=== PATIENT | female | born 2000 | race Caucasian/White ===

== ENCOUNTER 2019-11-19 16:25 | Inpatient (IN) ==
[2019-11-19] MEDS: RINGER'S SOLUTION,LACTATED 1,000 ML IV PRN ×2 (16:40→20:06)
[2019-11-19] MEDS ORDERED: ONDANSETRON 4 MG TAB.RAPDIS PO PRN (19:26)
[2019-11-19] MEDS ORDERED: PENICILLIN G POTASSIUM 5 MILLIONUNT in DEXTROSE 5 % IN WATER 100 ML IV ONE ×2 (19:26)
[2019-11-19] MEDS ORDERED: BUTORPHANOL TARTRATE 2 MG/ML VIAL IV PRN ×2 (19:26)
[2019-11-19] MEDS ORDERED: OXYTOCIN/DEXTROSE 5%-WATER 30 UNITS/500 ML BAG IV ONE (19:26)
[2019-11-19] MEDS ORDERED: LIDOCAINE HCL 50 ML VIAL PERI PRN (19:26)
[2019-11-19] MEDS ORDERED: RINGER'S SOLUTION,LACTATED 1,000 ML IV ONE (19:26)
[2019-11-19] MEDS: VANCOMYCIN/WATER FOR INJ (PEG) 2 GM/400 ML BAG IV SCH (21:23)
[2019-11-19] MEDS ORDERED: PENICILLIN G POTASSIUM 2.5 MILLIONUNT in DEXTROSE 5 % IN WATER 100 ML IV SCH ×2 (23:30)
[2019-11-20] MEDS: VANCOMYCIN/WATER FOR INJ (PEG) 2 GM/400 ML BAG IV SCH ×2 (05:12→12:43)
--- NOTE | 2019-11-20 09:01 | HP ---
Chief Complaint - Chief Complaint Date of Service: 11/20/19 Time of Service: 08:48 Chief Complaint: Labor History of Present Illness: 19 year old at 38w 5d who presented to labor and delivery in labor. She reports regular ctx. She denies vb or lof. Fetus is active. Medical History (Last Reviewed 11/20/19 @ 08:50 by Lianne Urrutia MD) Cellulitis and abscess of leg (Acute) Surgical History: Surgical History (Last Reviewed 11/20/19 @ 08:50 by Lianne Urrutia MD) History of bladder surgery urethra replantaion Family History: Family History (Last Reviewed 11/20/19 @ 08:50 by Lianne Urrutia MD) Father Diabetes Type II Mother Hypertension Grandmother Cancer leukemia Social History: (Last Reviewed 11/20/19 @ 08:50 by Lianne Urrutia MD) Social History: Marital status: Single lives independently: Yes household members: significant other current occupational status: employed current occupational exposures/hazards: No Highest education level completed: some college, no degree Service: No Tobacco: Smoking Status: Never smoker Alcohol: alcohol intake: never Substance Use: substance use type: does not use Dietary Habits: caffeine: No Review Of Systems (GEN) - Review of Systems Generalized/Overall Review: Present: No Symptoms Reported EENTM: Present: No Symptoms Reported Respiratory: Present: No Symptoms Reported Cardiac: Present: No Symptoms Reported Abdominal: Present: No Symptoms Reported Genitourinary: Present: Other - contractions Musculoskeletal: Present: No Symptoms Reported Neurological: Present: No Symptoms Reported Skin: Present: No Symptoms Reported Endocrine: Present: No Symptoms Reported Immunizations: IMMUNIZATION HX Immunizations Up to Date Yes Allergies/Adverse Reactions: Allergies Allergy/AdvReac Type Severity Reaction Status Date / Time penicillin G Allergy Itching Verified 11/19/19 20:47 Home Medications: HOME MEDICATIONS fluoxetine 20 mg capsule 20 mg PO DAILY #30 cap 05/25/19 [Last Taken 11/19/19 09:00] ferrous sulfate 325 mg (65 mg iron) tablet 325 mg PO DAILY 10/20/19 [Last Taken 11/19/19 09:00] Acetaminophen [Tylenol] 1,000 tab PO Q8H PRN 11/18/19 [Last Taken 11/17/19] Vits96/Iron Fum/Folic [ S] 1 tab PO DAILY 11/18/19 [Last Taken 11/19/19 09:00] Exam - Exam Vital Signs: Vital Signs - Last Taken Temp 36.5 C 11/20/19 00:30 Pulse 77 11/20/19 00:30 Resp 20 11/20/19 00:30 BP 118/64 11/20/19 00:30 Pulse Ox 100 11/20/19 00:30 Constitutional: Present: Alert, Oriented x3, Cooperative, No distress ENT Exam: Present: hearing grossly normal Eye Exam: bilateral eye: normal inspection Neck: Present: supple Back Exam: Present: normal inspection Breasts: Present: Exam deferred Respiratory: Present: lungs clear, normal breath sounds, no respiratory distress Cardiovascular/Chest: Present: regular rate, rhythm Abdomen: Present: soft, nontender, nondistended /Rectal: Present: Other - 4-5/70/-2 Extremity: Present: non-tender, no calf tenderness Skin Exam: Present: normal color, warm/dry, no cyanosis Neurologic: Present: alert, normal mood/affect, oriented x 3 Appearance: Present: appropriate appearance Eye contact: Present: cooperative, good eye contact, normal speech Thoughts: Present: normal thought pattern Diagnostic Studies: Laboratory Results Creatinine 0.60 mg/dL (0.4-1.4) 11/19/19 19:43 Blood Type O Positive 11/19/19 19:43 Antibody Screen Negative 11/19/19 19:43 Assessment/Plan - Narrative Narrative: 19 year old at 38w 5d Patient admitted for labor. She made cervical change from 1 cm to 3-4 cm. She is currently 4-5 cm. AROM done for augmentation of labor. Pitocin started for augmentation of labor as well GBS positive: the patient was started on PCN for GBS prophylaxis and she developed an allergic reaction to PCN. Started on vancomycin for GBS prophylaxis since the patient had sensitivities done with her GBS and was only sensitive to PCN. Baseline creatitine ordered due to starting vancomycin. - Assessment/Plan (1) Rh(D) positive Problem: Acute (2) Positive GBS test Problem: Acute (3) 38 weeks gestation of Problem: Acute (4) Recurrent UTI Problem: Acute (5) History of maternal Chlamydia infection, currently in third trimester Problem: Acute
[2019-11-20] MEDS: RINGER'S SOLUTION,LACTATED 1,000 ML IV PRN ×2 (09:34→10:40)
[2019-11-20] MEDS ORDERED: NALOXONE HCL 1 MG/1 ML SYRG IV PRN (09:38)
[2019-11-20] MEDS ORDERED: BUPIVACAINE HCL/0.9 % NACL/PF 250 ML EP PRN (09:38)
[2019-11-20] MEDS ORDERED: ONDANSETRON HCL/PF 2 MG/ML VIAL IV PRN (09:38)
[2019-11-20] MEDS ORDERED: fentaNYL CITRATE/PF 50 MCG/ML AMPUL IT SCH (09:45)
--- NOTE | 2019-11-20 10:41 | ANES ---
Post Anesthesia Discharge - Transfer of Care Transfer of Care handoff given to nurse: Yes - Anesthesia Post Op Note Anesthesia Post Op Note: Care transferred to OB RN
--- NOTE | 2019-11-20 10:41 | ANES ---
Anesthesia Pre Procedure Eval Vitals/Labs: Last Vital Signs Temp 36.5 C 11/20/19 00:30 Pulse 77 11/20/19 00:30 Resp 20 11/20/19 00:30 BP 118/64 11/20/19 00:30 Pulse Ox 100 11/20/19 00:30 HOME MEDICATIONS fluoxetine 20 mg capsule 20 mg PO DAILY #30 cap 05/25/19 [Last Taken 11/19/19 09:00] ferrous sulfate 325 mg (65 mg iron) tablet 325 mg PO DAILY 10/20/19 [Last Taken 11/19/19 09:00] Acetaminophen [Tylenol] 1,000 tab PO Q8H PRN 11/18/19 [Last Taken 11/17/19] Vits96/Iron Fum/Folic [ S] 1 tab PO DAILY 11/18/19 [Last Taken 11/19/19 09:00] Allergies/Adverse Reactions: Allergies Allergy/AdvReac Type Severity Reaction Status Date / Time penicillin G Allergy Itching Verified 11/19/19 20:47 - Planned Procedure Planned Procedure: LABOR Medication List Reviewed:: Yes Allergies Verified: Yes Medical History (Last Reviewed 11/20/19 @ 10:40 by Deion Alcala CRNA) Cellulitis and abscess of leg (Acute) Surgical History (Last Reviewed 11/20/19 @ 10:40 by Deion Alcala CRNA) History of bladder surgery urethra replantaion Family History (Last Reviewed 11/20/19 @ 10:40 by Deion Alcala CRNA) Father Diabetes Type II Mother Hypertension Grandmother Cancer leukemia - Family Anesthesia History Family History:: no untoward family reactions to anesthesia - Airway/Neck/Teeth Within Normal Limits:: Yes Teeth Condition: intact Neck Exam: full range of motion Mallampatti Score: 2 Thyromental (T-M) distance: > 6 cm Mandibulo Hyoid distance: > 3 cm - Respiratory Respiratory Physical: lungs clear Smoking Status: Never smoker Sleep Apnea currently treated: No Sleep Apnea by current assessment: No - Cardiovascular Tolerate Activity: Good Heart Sounds: S1 & S2, Regular - Gastrointestinal NPO since: MN - Anesthesia Assessment and Plan ASA Class: PS, II, E Anesthesia Type Plan: Epidural Planned difficult intubation/equipment available: No
--- NOTE | 2019-11-20 10:42 | ANES ---
Post Anesthesia Assessment - Vital Signs Vitals: Last Vital Signs Temp 36.5 C 11/20/19 00:30 Pulse 77 11/20/19 00:30 Resp 20 11/20/19 00:30 BP 118/64 11/20/19 00:30 Pulse Ox 100 11/20/19 00:30 Airway Patency: Normal - Mental Status Level Of Consciousness: Awake - Pain Level Pain Score: 2 - N/V Assessment Nausea/Vomiting Presence: None Dehydration:: No
--- NOTE | 2019-11-20 10:44 | ANES ---
Anesthesia Procedure Note Procedure Note: ANESTHESIA PROCEDURE NOTE Date of Procedure: 11/20/2019 Time of procedure: 1025. Performed by: Saulo Alcala CRNA Bar Manager: None. Preprocedure diagnosis: Active labor. Post procedure diagnosis: Same. Procedure: Insertion of labor epidural. Indications: The patient is a 19-year-old prima para female in active labor requesting labor epidural for pain management. Findings: See below. Details of the procedure: The patient was placed in a sitting position. Back was prepped with DuraPrep. Patient was then draped in a sterile fashion. Lidocaine 1% was infiltrated to the skin and subcutaneous tissues at the level of the L3 4 interspace. The epidural space was identified using a 18-gauge Tuohy needle with [id number] technique. 20 mcg fentanyl was given intrathecally using a 27 ga. spinal needle. Epidural catheter was inserted without difficulty. Negative test dose was elicited using 5 mL of 1.5% preservative-free lidocaine plus epinephrine 1 200,000. The epidural catheter was then taped and secured in place. EBL: Minimal. Fluids: N/A. Specimen: N/A. Post procedure condition: The patient tolerated the procedure well. No complications were noted. Thank you for this consultation. Moreno CRNA
[2019-11-20] MEDS ORDERED: GLYCERIN/WITCH HAZEL LEAF 40 APPL BOX TP PRN (15:26)
[2019-11-20] MEDS ORDERED: OXYTOCIN/DEXTROSE 5%-WATER 30 UNITS/500 ML BAG IV ONE (15:26)
[2019-11-20] MEDS ORDERED: BISACODYL 10 MG SUPP.RECT RC PRN (15:26)
[2019-11-20] MEDS ORDERED: BENZOCAINE/MENTHOL 81 SPRAY CAN TP PRN (15:26)
[2019-11-20] MEDS ORDERED: HYDROcodone/ACETAMINOPHEN 1 EACH TABLET PO PRN ×2 (15:26)
[2019-11-20] MEDS ORDERED: SENNOSIDES 8.6 MG TABLET PO PRN (15:26)
[2019-11-20] MEDS ORDERED: HYDROCORTISONE 30 APPL TUBE TP PRN (15:26)
[2019-11-20] MEDS ORDERED: diphenhydrAMINE HCL 25 MG CAPSULE PO PRN (15:26)
--- NOTE | 2019-11-20 15:34 | OR ---
Operative Report - Dictated Report Narrative: Date of delivery: 11/20/2019 Time of delivery: 1508 Gender: female weight: 3006 grams APGARS: 8/9 Procedure: Description of the procedure: The patient is a 19 year old at 38w 5d who presented to labor and delivery in labor. Labor was augmented with pitocin and AROM. The patient progressed to complete dilation. She delivered a viable female in MED presentation. The shoulders delivered without any difficulty followed by the rest of the . Cord clamping was delayed for 60 seconds. The cord was clamped and cut. Cord blood was collected. The placenta was delivered by expression and appeared intact. There were bilateral labial lacerations which were not repaired due to hemostasis. There were no other lacerations. EBL: 100 mL Complications: none Specimens: none History for MU Definition: * The number of deliveries resulting in a live the patient experienced prior to current hospitalization * The previous delivery of live twins or any live multiple gestation is considered one live event. *If primagravida or nulliparous is documented select zero for the number of previous live births. Live Events: 0
[2019-11-20] MEDS ORDERED: VANCOMYCIN HCL LEVEL XX ONE (20:00)
[2019-11-20] MEDS: DOCUSATE SODIUM 100 MG CAPSULE PO SCH (21:52)
[2019-11-21] MEDS: VANCOMYCIN/WATER FOR INJ (PEG) 2 GM/400 ML BAG IV SCH (05:39)
[2019-11-21] MEDS: IBUPROFEN 800 MG TABLET PO PRN ×2 (07:35→19:03)
[2019-11-21] MEDS: DOCUSATE SODIUM 100 MG CAPSULE PO SCH ×3 (07:36→21:24)
[2019-11-21] MEDS: PRENATAL VITS96/IRON FUM/FOLIC 1 TAB TABLET PO SCH (08:40)
[2019-11-21] MEDS: FLUoxetine HCL 20 MG CAPSULE PO SCH (08:40)
--- NOTE | 2019-11-21 10:01 | PN ---
Subjective - Date and Time Seen Date: 11/21/19 Time: 09:59 Subjective Narrative: Patient without complaints Objective Objective Narrative: See vital signs - Review of Systems Generalized/Overall Review: Reports: No Symptoms Reported Misc: All systems neg except as marked - Vitals Vitals: Last Vital Signs Temp 37.0 C 11/21/19 06:45 Pulse 97 11/21/19 06:45 Resp 20 11/21/19 06:45 BP 123/70 11/21/19 06:45 Pulse Ox 99 11/21/19 06:45 - Exam Constitutional: Present: Alert, Oriented x3, Cooperative, No distress ENT Exam: Present: hearing grossly normal Skin Exam: Present: normal color, warm/dry, no cyanosis Appearance: Present: appropriate appearance Eye contact: Present: cooperative Thoughts: Present: normal thought pattern Cauti Physician Documentation - Urinary Catheter Management Urethral ([place]) Urethral Indwelling: No Date of Insertion: 11/20/19 Time of Insertion: 11:30 Date of Removal: 11/20/19 Time of Removal: 14:55 Assessment/Plan Plan Narrative: PPD 1 s/p Doing well Discharge tomorrow - Problems/Diagnosis (1) Rh(D) positive Problem: Acute (2) Positive GBS test Problem: Acute (3) 38 weeks gestation of Problem: Acute (4) Recurrent UTI Problem: Acute (5) History of maternal Chlamydia infection, currently in third trimester Problem: Acute
[2019-11-22] MEDS: IBUPROFEN 800 MG TABLET PO PRN (04:39)
[2019-11-22 08:08] VITALS: BP 128/65
--- NOTE | 2019-11-22 09:12 | PN ---
Subjective - Date and Time Seen Date: 11/22/19 Time: 09:11 Subjective Narrative: Patient without complaints Objective Objective Narrative: See vital signs - Review of Systems Generalized/Overall Review: Reports: No Symptoms Reported Misc: All systems neg except as marked - Vitals Vitals: Last Vital Signs Temp 36.5 C 11/22/19 08:06 Pulse 70 11/22/19 08:06 Resp 16 11/22/19 08:06 BP 128/65 11/22/19 08:06 Pulse Ox 100 11/22/19 08:06 - Exam Constitutional: Present: Alert, Oriented x3, Cooperative, No distress Abdomen: Present: soft, nontender, nondistended Extremity: Present: non-tender, no calf tenderness Skin Exam: Present: normal color, warm/dry, no cyanosis Appearance: Present: appropriate appearance Eye contact: Present: cooperative Thoughts: Present: normal thought pattern Cauti Physician Documentation - Urinary Catheter Management Urethral ([place]) Urethral Indwelling: No Date of Insertion: 11/20/19 Time of Insertion: 11:30 Date of Removal: 11/20/19 Time of Removal: 14:55 Assessment/Plan Plan Narrative: PPD 2 s/p Doing well Discharge today - Problems/Diagnosis (1) Rh(D) positive Problem: Acute (2) Positive GBS test Problem: Acute (3) 38 weeks gestation of Problem: Acute (4) Recurrent UTI Problem: Acute (5) History of maternal Chlamydia infection, currently in third trimester Problem: Acute
[2019-11-22] MEDS: FLUoxetine HCL 20 MG CAPSULE PO SCH (09:59)
[2019-11-22] MEDS: PRENATAL VITS96/IRON FUM/FOLIC 1 TAB TABLET PO SCH (09:59)
[2019-11-22] MEDS: DOCUSATE SODIUM 100 MG CAPSULE PO SCH (09:59)
== END 2019-11-22 11:25 | disposition home or self-care (01) | DRG 806 ==
LOC: OBCLINIC 16:25 → OB 19:07
PROVIDERS: ADMIT Obstetrics & Gynecology; ATTEND Obstetrics & Gynecology
CPT/HCPCS: 36415; 59025; 82565; 86850